=== PATIENT | female | born 2000 | race Caucasian/White ===

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

== ENCOUNTER → 2022-06-17 | Outpatient (CLI) | payer BC | END | disposition home or self-care (01) | LOC: LABWHC1 16:26 | DX: A69.20 Lyme disease, unspecified (principal) | CPT/HCPCS: 36415; 86611 ==

== ENCOUNTER → 2022-07-08 | Outpatient (CLI) | payer BC ==
[2022-07-08 18:34] LABS: T4, Free (Free Thyroxine) 1.74 ng/dL (0.800-1.800)
[2022-07-08 19:53] LABS: Appearance,Urine Clear (Clear); Bilirubin,Urine Negative (Negative); Blood,Urine Negative (Negative); Color,Urine Yellow (Yellow); Ketones,Urine 15 mg/dL (Negative); Nitrite,Urine Negative (Negative); Specific Gravity,Urine 1.005 (1.001-1.030); Urobilinogen,Urine 0.2 (0.2,1.0)
== END | disposition home or self-care (01) ==
LOC: LABWHC1 13:56
PROVIDERS: ATTEND Family Medicine
DX: G47.00 Insomnia, unspecified (principal); R53.83 Other fatigue; R53.81 Other malaise; R79.89 Other specified abnormal findings of blood chemistry; W57.XXXS Bitten or stung by nonvenomous insect and other nonvenomous arthropods, sequela
CPT/HCPCS: 36415; 81003; 84439; 84443

== ENCOUNTER → 2022-07-17 | Outpatient (CLI) | payer BC | END | disposition home or self-care (01) | LOC: LABWHC1 14:57 | PROVIDERS: ATTEND Internal Medicine | DX: A69.20 Lyme disease, unspecified (principal) | CPT/HCPCS: 36415 ==

== ENCOUNTER → 2022-07-22 | Outpatient (CLI) | payer BC | END | disposition home or self-care (01) | LOC: LABWHC1 13:40 | PROVIDERS: ATTEND Internal Medicine | DX: A69.20 Lyme disease, unspecified (principal); A44.9 Bartonellosis, unspecified | CPT/HCPCS: 36415 ==

== ENCOUNTER → 2022-08-01 | Outpatient (CLI) | payer BC ==
[2022-08-03 05:00] LABS: Strep DNASE B Antibody <86 U/mL (0-260)
== END | disposition home or self-care (01) ==
LOC: LABWHC1 12:49
PROVIDERS: ATTEND Internal Medicine Infectious Disease
DX: A78 Q fever (principal); A49.1 Streptococcal infection, unspecified site; M02.9 Reactive arthropathy, unspecified
CPT/HCPCS: 36415; 86038; 86215; 86255

== ENCOUNTER → 2023-03-12 | Outpatient (CLI) | payer BC ==
[2023-03-12 21:08] LABS: Basophils # (A) 0.05 X 10*3/uL (0.00-0.10); Basophils % (A) 0.5 %; Eosinophils # (A) 0.17 X 10*3/uL (0.04-0.35); Eosinophils % (A) 1.8 %; HCT 44.4 % (37.2-46.3); HGB 14.7 d/dL (12.0-15.0); Lymphocytes # (A) 2.89 X 10*3/uL (0.90-5.00); Lymphocytes % (A) 30.2 %; MCHC 33.1 d/dL (32.0-37.0); MCV 93.7 FL (80.0-97.0); Mean Platelet Volume 11.3 FL (9.5-12.2); Monocytes # (A) 0.89 X 10*3/uL (0.20-1.00); Monocytes % (A) 9.3 %; NRBC Per 100 WBC 0 X 10*3/uL (0.00-0.01); Neutrophils # (A) 5.54 X 10*3/uL (1.80-7.70); Platelet Count 248 X 10*3/uL (140-440); RBC 4.74 X 10*6/uL (4.10-5.20); RDW 12.3 % (11.5-14.5); WBC 9.56 X 10*3/uL (4.50-10.00)
[2023-03-12 21:37] LABS: ALT 22 U/L (8-44); AST 20 U/L (13-35); Albumin 4.2 d/dL (3.8-4.9); Albumin/Globulin Ratio 1.68 Ratio (1.60-3.17); Alkaline Phosphatase 46 U/L (41-126); Blood Urea Nitrogen 13.5 mg/dL (9.0-27.0); C Reactive Protein <0.30 mg/dL (0.00-0.80); Calcium 9.6 mg/dL (8.7-10.3); Carbon Dioxide 21.9 mmol/L (21.6-31.8); Chloride 101 mmol/L (96-109); Globulin 2.5 d/dL (1.6-3.3); Glucose 93 mg/dL (70-110); Lipase 28 U/L (14-63); Potassium 4.6 mmol/L (3.5-5.5); Sodium 135 mmol/L (135-145); Total Bilirubin 0.6 mg/dL (0.3-1.2); Total Protein 6.7 d/dL (6.2-8.2)
== END | disposition home or self-care (01) ==
LOC: LABWHC1 09:52
PROVIDERS: ATTEND Internal Medicine
DX: A69.20 Lyme disease, unspecified (principal); Z79.899 Other long term (current) drug therapy
CPT/HCPCS: 36415; 80053; 83690; 85025; 86140

== ENCOUNTER → 2023-03-26 | Outpatient (CLI) | payer BC ==
[2023-03-26 11:41] LABS: ALT 24 U/L (8-44); AST 22 U/L (13-35); Albumin 3.9 d/dL (3.8-4.9); Albumin/Globulin Ratio 1.56 Ratio (1.60-3.17); Alkaline Phosphatase 49 U/L (41-126); Blood Urea Nitrogen 14.5 mg/dL (9.0-27.0); C Reactive Protein <0.30 mg/dL (0.00-0.80); Calcium 9.5 mg/dL (8.7-10.3); Carbon Dioxide 23.1 mmol/L (21.6-31.8); Chloride 105 mmol/L (96-109); Globulin 2.5 d/dL (1.6-3.3); Glucose 92 mg/dL (70-110); Lipase 21 U/L (14-63); Potassium 4.6 mmol/L (3.5-5.5); Sodium 137 mmol/L (135-145); Total Bilirubin 0.4 mg/dL (0.3-1.2); Total Protein 6.4 d/dL (6.2-8.2)
[2023-03-26 11:50] LABS: Basophils # (A) 0.03 X 10*3/uL (0.00-0.10); Basophils % (A) 0.4 %; Eosinophils # (A) 0.17 X 10*3/uL (0.04-0.35); Eosinophils % (A) 2.3 %; HCT 42.6 % (37.2-46.3); Lymphocytes # (A) 2.54 X 10*3/uL (0.90-5.00); Lymphocytes % (A) 33.8 %; MCHC 32.9 d/dL (32.0-37.0); MCV 91.4 FL (80.0-97.0); Monocytes # (A) 0.57 X 10*3/uL (0.20-1.00); Monocytes % (A) 7.6 %; NRBC Per 100 WBC 0 X 10*3/uL (0.00-0.01); Neutrophils # (A) 4.18 X 10*3/uL (1.80-7.70); Neutrophils % (A) 55.6 %; Platelet Count 378 X 10*3/uL (140-440); RBC 4.66 X 10*6/uL (4.10-5.20); WBC 7.51 X 10*3/uL (4.50-10.00)
== END | disposition home or self-care (01) ==
LOC: LABWHC1 07:14
PROVIDERS: ATTEND Internal Medicine
DX: A69.20 Lyme disease, unspecified (principal); Z79.899 Other long term (current) drug therapy
CPT/HCPCS: 36415; 80053; 83690; 85025; 86140

== ENCOUNTER → 2023-05-18 | Outpatient (CLI) | payer OTHER ==
[2023-05-18 15:46] LABS: Basophils # (A) 0.03 X 10*3/uL (0.00-0.10); Basophils % (A) 0.4 %; Eosinophils # (A) 0.02 X 10*3/uL (0.04-0.35); Eosinophils % (A) 0.3 %; HCT 37.5 % (37.2-46.3); Lymphocytes # (A) 2.54 X 10*3/uL (0.90-5.00); Lymphocytes % (A) 34.2 %; MCH 31.3 pg (27.0-32.0); MCHC 34.7 d/dL (32.0-37.0); MCV 90.1 FL (80.0-97.0); Monocytes # (A) 0.49 X 10*3/uL (0.20-1.00); Monocytes % (A) 6.6 %; NRBC Per 100 WBC 0 X 10*3/uL (0.00-0.01); Neutrophils # (A) 4.33 X 10*3/uL (1.80-7.70); Neutrophils % (A) 58.2 %; Platelet Count 238 X 10*3/uL (140-440); RBC 4.16 X 10*6/uL (4.10-5.20); RDW 12.1 % (11.5-14.5); WBC 7.43 X 10*3/uL (4.50-10.00)
[2023-05-18 15:55] LABS: ALT 30 U/L (8-44); AST 24 U/L (13-35); Albumin 4.1 d/dL (3.8-4.9); Albumin/Globulin Ratio 2.16 Ratio (1.60-3.17); Alkaline Phosphatase 48 U/L (41-126); BUN/Creat Ratio 15.25 Ratio (12.00-20.00); Blood Urea Nitrogen 12.2 mg/dL (9.0-27.0); Carbon Dioxide 22.6 mmol/L (21.6-31.8); Chloride 107 mmol/L (96-109); Globulin 1.9 d/dL (1.6-3.3); Glucose 103 mg/dL (70-110); Lipase 23 U/L (14-63); Potassium 4.1 mmol/L (3.5-5.5); Sodium 138 mmol/L (135-145); Total Bilirubin 0.6 mg/dL (0.3-1.2)
[2023-05-18 15:58] LABS: C Reactive Protein, High Sens <0.150 mg/L (0.000-3.000)
== END | disposition home or self-care (01) ==
LOC: LABWHC1 10:02
DX: A69.20 Lyme disease, unspecified (principal); Z79.899 Other long term (current) drug therapy
CPT/HCPCS: 36415; 80053; 83690; 85025; 86141